=== PATIENT | male | born 1985 | race Two or more races ===

== ENCOUNTER 2021-11-07 08:44 | Outpatient (CLI) | payer OTHER | END 2021-11-07 08:49 | disposition home or self-care (01) | LOC: PPH VACUNA 08:44 | PROVIDERS: ATTEND Emergency Medicine Pediatric Emergency Medicine | DX: Z23 Encounter for immunization (principal) ==

== ENCOUNTER → 2022-11-07 | Outpatient (CLI) | payer OTHER | END | disposition home or self-care (01) | LOC: PPH VACUNA | PROVIDERS: ATTEND Emergency Medicine Pediatric Emergency Medicine | DX: Z23 Encounter for immunization (principal) ==